=== PATIENT | male | born 1985 | race Caucasian/White ===

== ENCOUNTER 2016-11-20 06:53 | Day surgery (SDC) | payer OTHER ==
[~2016-11-20 06:53] MED LIST: ceFAZolin 2 GM/DEXTROSE 100 ML IV ONE
[2016-11-20] MEDS ORDERED: LIDOCAINE 1% 2 ML INJ ONE (07:27)
[2016-11-20] MEDS ORDERED: BUPIVACAINE 0.5% 30 ML SDV ONE (07:44)
[2016-11-20] MEDS ORDERED: PROPOFOL/EMULSION 500 MG/50 ML BOTTLE IV ONE (08:37)
[2016-11-20] MEDS ORDERED: fentaNYL 100 MCG/2 ML INJ ONE ×3 (08:38→10:19)
[2016-11-20] MEDS ORDERED: MIDAZOLAM 2 MG/2 ML VIAL ONE (08:42)
[2016-11-20] MEDS ORDERED: OXYCODONE/APAP 5/325 TAB ONE (11:24)
--- NOTE | 2016-11-21 08:56 | GOP ---
[f rep st] OPERATIVE REPORT PATIENT NAME: Lee Siegel DATE OF : DATE OF OPERATION: 11/20/2016 SURGEON: Amish Mujica MD DELI BAKERY CLERK: None. ANESTHESIOLOGIST: Dr. Barry. PREOPERATIVE DIAGNOSIS: Incarcerated umbilical hernia. POSTOPERATIVE DIAGNOSIS: Incarcerated umbilical hernia. PROCEDURE PERFORMED: Open repair incarcerated umbilical hernia with mesh. FINDINGS: Patient was found to have a 1.5 cm umbilical hernia defect. Had some incarcerated fatty tissue which was inflamed, but no actual bowel in the hernia. DESCRIPTION OF PROCEDURE: Patient taken to the operating room, received satisfactory general endotr acheal anesthesia by Dr. Barry, placed in supine position, prepped and draped in usual sterile [facility] ion. Incision was made over the umbilicus. Dissection was carried down through the subcutaneous ti ssue and the hernia sac was dissected free from surrounding subcutaneous tissue and off the skin of the umbilicus. The sac was opened, had some purplish-stained fluid but no intestines. The fatty ti ssue was divided and removed. Hemostasis was assured. The tissue was reduced. A subfascial space was created. A piece of polypropylene mesh was placed subfascially, and secured around the circumfe rence with interrupted 0 Surgilon mattress sutures. The defect was closed directly with 0 Surgilon interrupted [id number] sutures. Wound was infiltrated with Marcaine, subcu was clos ed with 3-0 Vicryl, skin with a 4-0 Monocryl subcuticular stitch. He tolerated procedure well, was taken to recovery room in good condition. No complications. Copy requested to: Dr. Bi Rojo /[id number][place] [place]
== END 2016-11-20 12:30 | disposition home or self-care (01) ==
LOC: FSGY 06:53
PROVIDERS: ATTEND Surgery
PROC: 0WUF0JZ Supplement Abdominal Wall with Synthetic Substitute, Open Approach (ICD-10-PCS; principal; 2016-11-20 08:30)
DX: K42.0 Umbilical hernia with obstruction, without gangrene (principal)
CPT/HCPCS: C1781; J0690; J2250; J2704; J3010